=== PATIENT | female | born 1940 | race Caucasian/White ===

== ENCOUNTER → 2016-03-20 | Outpatient (CLI) | payer MEDICARE, OTHER ==
[~2016-03-20] MED LIST: ACIPHEX; ACIPHEX20 MG PO; ADVIL200 MG PO; ALBUTEROL0.83 MG/ML; ALVESCO80 MCG/Act IH; ASPIR-LOW81 MG PO; ATARAX 10MG10 MG/TAB PO; ATENOLOL25 MG PO; ATROVENT I0.2 MG/1 M IH; ATROVENTNS0.03% NS; BENTYL 20MG20 MG/TAB PO; CALCIUM-500 5001 CTB PO; CALCIUM1 CAP PO; CINNAMON500 MG; CINNAMON500 MG PO; COLD PO; DEMADEX 20MG20 M1 PO; DIOVAN 80MG80 MG PO; DOXYCYCLINE 10100 MG PO; EPA FISH OIL1000 MG PO; EVISTA60 MG PO; FISH OIL1 IU PO; FISH OIL500 MG PO; FLAGYL500 MG PO; FOSAMAX PO; GLUCOSAMINE & C1 CAP PO; HALCION 0.0.125 MG/T PO; HCTZ; INDERAL 10MG10 MG PO; K-TAB20; LASIX 20MG TABL20 MG PO; LASIX 40MG TABL40 MG PO; LORTAB 5/500 501 TAB PO; LOVAZA1 GM PO; MACROBID 1100 MG/CAP PO; MOTRIN 800800 MG/TAB PO; MULTIPLE VITAMI1 CAP PO; MVI; PAMELOR 10MG10 MG PO; PHENERGAN 25 TA25 MG PO; PRAVASTATIN40 MG PO; PRESERVISION; PRESSERVISION; PROBIOTIC ACID1 EAC3 PO; PROBIOTIC-SUNMARK; PROVENTIL0.09 MG/A1 IH; SINGULAIR; SPIRIVA INH IH; SPIRIVA18 MCG IH; THEO-24100 MG PO; THEOPHYLLINE PO; TYLENOL 500MG500 MG PO; ULTRAM50 MG PO; VITAMIN D32000 IU PO; VITAMIN D50000 I1 PO; VYTORIN; ZANTAC 7575 MG PO; ZEBETA 5MG5 MG PO; ZESTRIL2.5 MG PO; ZYRTEC; ZYRTEC 10MG10 MG PO; ZYRTEC-D 5 MG-11 TER PO; ZYRTEC10 MG PO; [UNRECOGNIZED DRUG - OTHER]; [UNRECOGNIZED DRUG - OTHER] PO; calcium; evista; glucosamine chondroi; vitamin d
== END ==
LOC: ZCOL.LAB 17:40
DX: J32.8 Other chronic sinusitis (principal)

== ENCOUNTER → 2016-12-05 | Outpatient (CLI) | payer MEDICARE, OTHER | LOC: MC.RAD 13:40 | DX: Z12.31 Encounter for screening mammogram for malignant neoplasm of breast (principal) ==

== ENCOUNTER 2017-07-20 09:29 | Emergency (ER) | payer MEDICARE, OTHER ==
[~2017-07-20] VITALS: Ht 154.9 cm; Wt 74.5 kg
[2017-07-20 09:36] VITALS: TEMP 97.4
[2017-07-20 10:15] LABS: BASO # 0.1 (0.0-0.2); BASO % 0.6 % (0.0-2.0); EOS # 0.3 (0.0-0.7); EOS % 3.1 % (0-4.0); GRAN # 5.8 (1.4-6.5); GRAN % 61.1 % (42.2-75.2); HEMATOCRIT 39.8 % (37.0-47.0); HEMOGLOBIN 13.2 g/dl (12.5-16.0); LYMPH # 2.1 (1.2-3.4); LYMPH % 22.3 % (20.0-51.0); MEAN CELL VOLUME 93 fl (80.0-100.0); MEAN CORPUSCULAR HEMOGLOBIN 31 pg (27.0-31.0); MEAN CORPUSCULAR HGB CONC 33 g/dl (33.0-37.0); MEAN PLATELET VOLUME 8.8 fl (7.4-10.4); MONO # 1.2 (0.1-0.6); MONO % 12.4 % (1.7-9.3); PLATELET COUNT 425 K/mm3 (130-400); REDCELL DISTRIBUTION WIDTH-CV 13.6 % (11.5-14.5)
[2017-07-20 10:28] LABS: ALANINE AMINOTRANSFERASE 32 U/L (9-52); ALBUMIN 3.7 gm/dL (3.5-5.0); ALKALINE PHOSPHATASE 92 U/L (50-136); ANION GAP 15 mmol/L (7-16); AST,SGOT 28 U/L (15-37); BILIRUBIN,TOTAL 0.5 mg/dL (0.0-1.0); BLOOD UREA NITROGEN 22 mg/dL (7-17); CARBON DIOXIDE 30 mmol/L (22-30); CHLORIDE 91 mmol/L (98-107); CREATININE, serum 1.03 mg/dL (0.52-1.25); GLUCOSE 112 mg/dL (74-106); LIPASE 96 U/L (23-300); SODIUM 136 mmol/L (137-145); TOTAL PROTEIN 7.3 gm/dL (6.4-8.2)
[2017-07-20] MEDS ORDERED: PRAVACHOL 40MG40 MG PO (10:35)
[2017-07-20] MEDS ORDERED: LASIX 20MG TABL20 MG PO (10:35)
[2017-07-20] MEDS ORDERED: EVISTA 60MG60 MG/TAB PO (10:36)
[2017-07-20] MEDS ORDERED: THEO-DUR 1100 MG/TAB PO (10:36)
[2017-07-20] MEDS ORDERED: ACIPHEX20 MG PO (10:36)
[2017-07-20] MEDS ORDERED: SINGULAIR 110 MG/TAB PO (10:37)
[2017-07-20] MEDS ORDERED: MULTI VITAMINS1 TAB PO (10:37)
[2017-07-20] MEDS ORDERED: K-DUR20 MEQ PO (10:37)
[2017-07-20] MEDS ORDERED: CALCIUM ANTACI750 M1 PO (10:38)
[2017-07-20] MEDS ORDERED: FISH OIL 500 M1 EAC1 PO (10:38)
[2017-07-20] MEDS ORDERED: SPIRIVA RE2.5 MCG/Ac IH (10:38)
[2017-07-20] MEDS ORDERED: ZANTAC 7575 MG PO (10:39)
[2017-07-20] MEDS ORDERED: ZYRTEC 10MG10 MG PO (10:39)
[2017-07-20] MEDS ORDERED: ATARAX 10MG10 MG/TAB PO (10:39)
[2017-07-20] MEDS ORDERED: ATROVENT NASAL15 ML NS (10:40)
[2017-07-20] MEDS ORDERED: PAMELOR 10MG10 MG PO (10:40)
[2017-07-20] MEDS ORDERED: FLOVENT 110MCG7.9 GM IH (10:40)
[2017-07-20] MEDS ORDERED: DIGESTIVE PROB1 EACH PO (10:41)
[2017-07-20] MEDS ORDERED: PROBIOTIC FORMU1 CAP PO (10:41)
[2017-07-20] MEDS ORDERED: INDERAL 10MG10 MG PO (10:41)
[2017-07-20] MEDS ORDERED: MELATONIN5 M1 SL (10:42)
[2017-07-20] MEDS ORDERED: FLONASEALLERGY NS (10:42)
[2017-07-20] MEDS ORDERED: NULEV0.125 M1 PO (10:43)
[2017-07-20 10:47] LABS: TROPONIN-I < 0.012 ng/mL (0.000-0.034)
[2017-07-20 11:18] LABS: COLLECTION METHOD CLEAN CATCH
[2017-07-20 11:23] LABS: PH 7 (5-8); SQUAMOUS EPITHELIAL 0-2 /hpf; URINE APPEARANCE Clear; URINE BACTERIA None Seen /hpf; URINE BILIRUBIN Negative (NEGATIVE); URINE BLOOD Negative (NEGATIVE); URINE COLOR Straw; URINE GLUCOSE Negative (NEGATIVE); URINE KETONE Negative (NEGATIVE); URINE LEUKOCYTE ESTERASE Negative (NEGATIVE); URINE NITRATE Negative (NEGATIVE); URINE PROTEIN(semi-quant) Negative (NEGATIVE); URINE RBC 0-2 /hpf; URINE UROBILINOGEN Negative (NEGATIVE); URINE WBC 0-2 /hpf
[2017-07-20 13:15] VITALS: BP 116/73; PULSE 108
== END 2017-07-20 13:17 | disposition other institution (70) ==
LOC: COL.ER 09:29
PROVIDERS: Emergency Medicine
DX: E87.6 Hypokalemia (principal); E86.0 Dehydration; R42 Dizziness and giddiness; I25.10 Atherosclerotic heart disease of native coronary artery without angina pectoris; J44.9 Chronic obstructive pulmonary disease, unspecified; Z90.49 Acquired absence of other specified parts of digestive tract; Z79.51 Long term (current) use of inhaled steroids
CPT/HCPCS: J7040

== ENCOUNTER 2017-11-28 15:00 | Outpatient (RCR) | payer MEDICARE, OTHER ==
[~2017-11-28 15:00] MED LIST changes: +ATROVENT NASAL15 ML NS; +CALCIUM ANTACI750 M1 PO; -CINNAMON500 MG; +D-2000 90 MG-201 TAB PO; +DIGESTIVE PROB1 EACH PO; +EVISTA 60MG60 MG/TAB PO; +FISH OIL 500 M1 EAC1 PO; +FLONASEALLERGY NS; +FLOVENT 110MCG7.9 GM IH; +K-DUR20 MEQ PO; +LEVAQUIN 5500 MG/TA1 PO; +MELATONIN5 M1 SL; +MULTI VITAMINS1 TAB PO; +NULEV0.125 M1 PO; +PRAVACHOL 40MG40 MG PO; +PROBIOTIC FORMU1 CAP PO; +SINGULAIR 110 MG/TAB PO; +SPIRIVA RE2.5 MCG/Ac IH; +THEO-DUR 1100 MG/TAB PO; -VITAMIN D32000 IU PO; +ZAROXOLYN 2.52.5 MG PO
== END 2017-11-28 15:44 | disposition home or self-care (01) ==
LOC: WSC 15:00
DX: R53.81 Other malaise (principal); R26.9 Unspecified abnormalities of gait and mobility; R22.43 Localized swelling, mass and lump, lower limb, bilateral; J18.1 Lobar pneumonia, unspecified organism
CPT/HCPCS: G8978-GP; G8979-GP; G8980-GP

== ENCOUNTER 2018-03-05 12:00 | Outpatient (RCR) | payer MEDICARE, OTHER | END 2018-03-06 | disposition home or self-care (01) | LOC: WSPT | DX: R22.43 Localized swelling, mass and lump, lower limb, bilateral (principal) | CPT/HCPCS: G8978-GP; G8979-GP ==

== ENCOUNTER 2018-05-15 11:00 | Outpatient (RCR) | payer MEDICARE, OTHER | END 2018-06-18 | disposition home or self-care (01) | LOC: WSPT | DX: R22.43 Localized swelling, mass and lump, lower limb, bilateral (principal) ==

== ENCOUNTER → 2018-07-01 | Outpatient (CLI) | payer MEDICARE, OTHER | LOC: MC.RAD 13:15 | DX: Z12.31 Encounter for screening mammogram for malignant neoplasm of breast (principal) ==

== ENCOUNTER 2018-09-17 13:43 | Outpatient (RCR) | payer MEDICARE, OTHER | END 2018-09-18 08:27 | disposition home or self-care (01) | LOC: WSPT 13:43 | DX: Z01.818 Encounter for other preprocedural examination (principal) ==

== ENCOUNTER 2018-11-13 14:30 | Outpatient (RCR) | payer MEDICARE, OTHER | END 2018-11-26 13:23 | disposition home or self-care (01) | LOC: WSPT 14:30 | DX: M17.11 Unilateral primary osteoarthritis, right knee (principal); Z96.651 Presence of right artificial knee joint ==

== ENCOUNTER → 2020-03-03 | Outpatient (CLI) | payer MEDICARE, OTHER | LOC: MC.RAD 02-02 13:45 | DX: Z12.31 Encounter for screening mammogram for malignant neoplasm of breast (principal); N63.20 Unspecified lump in the left breast, unspecified quadrant ==

== ENCOUNTER → 2020-03-10 | Outpatient (CLI) | payer MEDICARE, OTHER | LOC: MC.RAD 12:57 | DX: R92.8 Other abnormal and inconclusive findings on diagnostic imaging of breast (principal) ==

== ENCOUNTER 2020-04-20 13:45 | Outpatient (RCR) | payer MEDICARE, OTHER ==
[2020-05-20] MEDS ORDERED: MOTRIN 200200 MG/TAB PO (09:05)
[2020-05-20] MEDS ORDERED: PRAVACHOL 40MG40 MG PO (09:06)
[2020-05-20] MEDS ORDERED: FLONASE NASAL S16 GM NS (09:06)
[2020-05-20] MEDS ORDERED: ACIPHEX20 MG PO (09:07)
[2020-05-20] MEDS ORDERED: THEO-DUR 3300 MG/TAB PO (09:09)
[2020-05-20] MEDS ORDERED: EVISTA 60MG60 MG/TAB PO (09:09)
[2020-05-20] MEDS ORDERED: K-DUR20 MEQ PO (09:10)
[2020-05-20] MEDS ORDERED: MASON NATURAL2000 IU PO (09:11)
[2020-05-20] MEDS ORDERED: SINGULAIR 110 MG/TAB PO (09:11)
[2020-05-20] MEDS ORDERED: NATURE'S BLEND500 M1 PO (09:12)
[2020-05-20] MEDS ORDERED: CALCIUM CARBON650 M2 PO (09:41)
[2020-05-20] MEDS ORDERED: RT SPIRIVA18 MCG IH (09:42)
[2020-05-20] MEDS ORDERED: FISH OIL 500 M1 EAC1 PO (09:43)
[2020-05-20] MEDS ORDERED: ZYRTEC-D 5 MG-11 TER PO (09:44)
[2020-05-20] MEDS ORDERED: TYLENOL 500MG500 MG (09:45)
[2020-05-20] MEDS ORDERED: ZYRTEC 10MG10 MG PO (09:46)
[2020-05-20] MEDS ORDERED: FLOVENT 110MCG7.9 GM IH (09:47)
[2020-05-20] MEDS ORDERED: ATARAX 10MG10 MG/TAB PO (09:47)
[2020-05-20] MEDS ORDERED: ATROVENTNS0.03% NS (09:49)
[2020-05-20] MEDS ORDERED: NEB MC (09:50)
[2020-05-20] MEDS ORDERED: INDERAL 10MG10 MG PO (09:51)
[2020-05-20] MEDS ORDERED: LEVSIN0.125 M1 PO (09:52)
[2020-05-20] MEDS ORDERED: PROBIOTIC FORMU1 CAP PO (09:52)
[2020-05-20] MEDS ORDERED: PAMELOR 10MG10 MG PO (09:53)
[2020-05-20] MEDS ORDERED: [UNRECOGNIZED DRUG - OTHER] (09:54)
[2020-05-20] MEDS ORDERED: RINSE (09:54)
[2020-05-20] MEDS ORDERED: LASIX 20MG TABL20 MG PO (09:55)
[2020-05-20] MEDS ORDERED: PEPCID 20MG TAB20 MG PO (09:55)
[2020-05-20] MEDS ORDERED: ULTRAM 50MG TAB50 MG PO (11:47)
== END 2020-05-23 | disposition home or self-care (01) ==
LOC: WSPT
DX: I89.0 Lymphedema, not elsewhere classified (principal)

== ENCOUNTER → 2020-04-26 | Outpatient (CLI) | payer MEDICARE, OTHER ==
[~2020-04-26] MED LIST changes: +CALCIUM CARBON650 M2 PO; +FLONASE NASAL S16 GM NS; +LEVSIN0.125 M1 PO; +MASON NATURAL2000 IU PO; +MOTRIN 200200 MG/TAB PO; +NATURE'S BLEND500 M1 PO; +NEB MC; +PEPCID 20MG TAB20 MG PO; +RINSE; +RT SPIRIVA18 MCG IH; +THEO-DUR 3300 MG/TAB PO; +TYLENOL 500MG500 MG; +ULTRAM 50MG TAB50 MG PO; +[UNRECOGNIZED DRUG - OTHER]
== END ==
LOC: MC.RAD
DX: N63.42 Unspecified lump in left breast, subareolar (principal); N60.01 Solitary cyst of right breast; Z98.890 Other specified postprocedural states; Z98.82 Breast implant status

== ENCOUNTER 2020-05-20 06:54 | Day surgery (SDC) | payer MEDICARE, OTHER ==
[~2020-05-20] VITALS: Ht 154.9 cm; Wt 74.6 kg
[~2020-05-20 06:54] MED LIST changes: -CALCIUM CARBON650 M2 PO; -FLONASE NASAL S16 GM NS; -LEVSIN0.125 M1 PO; -MASON NATURAL2000 IU PO; -MOTRIN 200200 MG/TAB PO; -NATURE'S BLEND500 M1 PO; -NEB MC; -PEPCID 20MG TAB20 MG PO; -RINSE; -RT SPIRIVA18 MCG IH; -THEO-DUR 3300 MG/TAB PO; -TYLENOL 500MG500 MG; -ULTRAM 50MG TAB50 MG PO; -[UNRECOGNIZED DRUG - OTHER]
[2020-05-20 08:44] VITALS: BP 153/73; PULSE 80; TEMP 98.1
[2020-05-20] MEDS ORDERED: MOTRIN 200200 MG/TAB PO (09:05)
[2020-05-20] MEDS ORDERED: PRAVACHOL 40MG40 MG PO (09:06)
[2020-05-20] MEDS ORDERED: FLONASE NASAL S16 GM NS (09:06)
[2020-05-20] MEDS ORDERED: ACIPHEX20 MG PO (09:07)
[2020-05-20] MEDS ORDERED: THEO-DUR 3300 MG/TAB PO (09:09)
[2020-05-20] MEDS ORDERED: EVISTA 60MG60 MG/TAB PO (09:09)
[2020-05-20] MEDS ORDERED: K-DUR20 MEQ PO (09:10)
[2020-05-20] MEDS ORDERED: SINGULAIR 110 MG/TAB PO (09:11)
[2020-05-20] MEDS ORDERED: MASON NATURAL2000 IU PO (09:11)
[2020-05-20] MEDS ORDERED: NATURE'S BLEND500 M1 PO (09:12)
[2020-05-20] MEDS ORDERED: CALCIUM CARBON650 M2 PO (09:41)
[2020-05-20] MEDS ORDERED: RT SPIRIVA18 MCG IH (09:42)
[2020-05-20] MEDS ORDERED: FISH OIL 500 M1 EAC1 PO (09:43)
[2020-05-20] MEDS ORDERED: ZYRTEC-D 5 MG-11 TER PO (09:44)
[2020-05-20] MEDS ORDERED: TYLENOL 500MG500 MG (09:45)
[2020-05-20] MEDS ORDERED: ZYRTEC 10MG10 MG PO (09:46)
[2020-05-20] MEDS ORDERED: ATARAX 10MG10 MG/TAB PO (09:47)
[2020-05-20] MEDS ORDERED: FLOVENT 110MCG7.9 GM IH (09:47)
[2020-05-20] MEDS ORDERED: ATROVENTNS0.03% NS (09:49)
[2020-05-20] MEDS ORDERED: NEB MC (09:50)
[2020-05-20] MEDS ORDERED: INDERAL 10MG10 MG PO (09:51)
[2020-05-20] MEDS ORDERED: LEVSIN0.125 M1 PO (09:52)
[2020-05-20] MEDS ORDERED: PROBIOTIC FORMU1 CAP PO (09:52)
[2020-05-20] MEDS ORDERED: PAMELOR 10MG10 MG PO (09:53)
[2020-05-20] MEDS ORDERED: RINSE (09:54)
[2020-05-20] MEDS ORDERED: [UNRECOGNIZED DRUG - OTHER] (09:54)
[2020-05-20] MEDS ORDERED: PEPCID 20MG TAB20 MG PO (09:55)
[2020-05-20] MEDS ORDERED: LASIX 20MG TABL20 MG PO (09:55)
[2020-05-20] MEDS ORDERED: ULTRAM 50MG TAB50 MG PO (11:47)
[2020-05-20 11:55] VITALS: BP 139/59; PULSE 85
--- NOTE | 2020-05-20 11:55 | NUR ---
Patient returns to room 7 per cart from surgery accompanied by Amber STEVENS and Solomon Lam CRNA. Patient is awake and alert. Temp 97.8 and room air sats 96%. Dressing clean and dry on the left breast. Daughter in room. IV fluids infusing. Denies pain or nausea. Given sips of water to drink.
[2020-05-20 12:10] VITALS: BP 152/60; PULSE 81
--- NOTE | 2020-05-20 12:10 | NUR ---
Resting and sipping on water. Continues to deny pain or nausea.
[2020-05-20 12:25] VITALS: BP 156/64; PULSE 81
--- NOTE | 2020-05-20 12:25 | NUR ---
Continues to sip on water. Offered snack and refuses. States that her daughter is going to get her something to eat on the way home.
--- NOTE | 2020-05-20 12:35 | NUR ---
IV discontinued and site is free of redness or swelling. Patient dresses self.
--- NOTE | 2020-05-20 12:49 | NUR ---
Dismissal instructions given and signed. Patient and daugter both verbalize understand these. Script was sent to pharmacy by physician.
--- NOTE | 2020-05-20 12:53 | NUR ---
Patient dismissed to home driven by daughter and taken to the front door per wheelchair with instructions in hand.
== END 2020-05-20 12:53 | disposition home or self-care (01) ==
LOC: SDCO 06:54
DX: N60.22 Fibroadenosis of left breast (principal); J44.9 Chronic obstructive pulmonary disease, unspecified; K21.9 Gastro-esophageal reflux disease without esophagitis; M81.0 Age-related osteoporosis without current pathological fracture; K58.9 Irritable bowel syndrome, unspecified; E78.5 Hyperlipidemia, unspecified; I10 Essential (primary) hypertension; I25.10 Atherosclerotic heart disease of native coronary artery without angina pectoris; I25.2 Old myocardial infarction; M19.90 Unspecified osteoarthritis, unspecified site; F32.9 Major depressive disorder, single episode, unspecified; F41.9 Anxiety disorder, unspecified; Z79.899 Other long term (current) drug therapy; Z85.828 Personal history of other malignant neoplasm of skin; Z80.0 Family history of malignant neoplasm of digestive organs
CPT/HCPCS: A4648; J0690; J1100; J1885; J2405; J2704; J3010; J7120

== ENCOUNTER 2021-05-06 15:24 | Emergency (ER) | payer MEDICARE, OTHER ==
[~2021-05-06] VITALS: Ht 154.9 cm; Wt 73.2 kg
[~2021-05-06 15:24] MED LIST changes: +CALCIUM CARBON650 M2 PO; +FLONASE NASAL S16 GM NS; +LEVSIN0.125 M1 PO; +MASON NATURAL2000 IU PO; +MOTRIN 200200 MG/TAB PO; +NATURE'S BLEND500 M1 PO; +NEB MC; +PEPCID 20MG TAB20 MG PO; +RINSE; +RT SPIRIVA18 MCG IH; +THEO-DUR 3300 MG/TAB PO; +TYLENOL 500MG500 MG; +ULTRAM 50MG TAB50 MG PO; +[UNRECOGNIZED DRUG - OTHER]
[2021-05-06 15:33] VITALS: BP 175/78; TEMP 97.2
[2021-05-06] MEDS ORDERED: ROBAXIN 50500 MG/TAB PO (16:18)
[2021-05-06 16:35] VITALS: PULSE 92
== END 2021-05-06 16:36 | disposition home or self-care (01) ==
LOC: COL.ER 15:24
DX: S09.90XA Unspecified injury of head, initial encounter (principal); W01.198A Fall on same level from slipping, tripping and stumbling with subsequent striking against other object, initial encounter; Y93.01 Activity, walking, marching and hiking; Y92.512 Supermarket, store or market as the place of occurrence of the external cause

== ENCOUNTER → 2021-08-31 | Outpatient (CLI) | payer MEDICARE, OTHER ==
[~2021-08-31] MED LIST changes: +ROBAXIN 50500 MG/TAB PO
== END ==
LOC: MC.RAD 08-28 10:00
DX: R92.8 Other abnormal and inconclusive findings on diagnostic imaging of breast (principal); N63.20 Unspecified lump in the left breast, unspecified quadrant

== ENCOUNTER → 2022-05-02 | Outpatient (CLI) | payer MEDICARE, OTHER ==
[~2022-05-02] MED LIST changes: +CALCIUM 600600 MG PO; -CALCIUM CARBON650 M2 PO; +FLONASEALLERGY; +KLOR-CON20 MEQ PO
== END ==
LOC: MC.RAD 13:55
DX: N63.20 Unspecified lump in the left breast, unspecified quadrant (principal); Z98.890 Other specified postprocedural states

== ENCOUNTER 2023-06-11 13:26 | Outpatient (RCR) | payer MEDICARE, OTHER ==
[~2023-06-11 13:26] MED LIST changes: +B-12 500 MCG PO; -FLONASEALLERGY; +FLONASEALLERGY NAS; +FLOVENT DI50 MCG/Act IH; +FOSAMAX 70MG TA70 MG PO; +K-TAB20 PO; +OMEGA-3 1000 MG1 CAP PO; +PEPCID AC 10MG10 MG PO; +PROBIOTIC BLEN1 EACH PO; +XANAX 0.5MG0.5 MG PO; +ZOFRAN ODT4 MG PO
== END 2023-06-18 | disposition home or self-care (01) ==
LOC: WSST
DX: R13.12 Dysphagia, oropharyngeal phase (principal)

== ENCOUNTER 2023-06-24 12:25 | Outpatient (RCR) | payer MEDICARE, OTHER ==
[2023-08-19] MEDS ORDERED: ASPIRIN E.C. 8181 MG PO (12:59)
== END 2023-07-19 | disposition home or self-care (01) ==
LOC: WSST
DX: R13.12 Dysphagia, oropharyngeal phase (principal)

== ENCOUNTER 2023-08-25 17:28 | Inpatient (IN) | payer MEDICARE, OTHER ==
[~2023-08-25] VITALS: Ht 149.9 cm; Wt 69.2 kg
[2023-08-25] VITALS (7 sets, daily range): BP systolic 88–124; BP diastolic 38–49; PULSE 91–96; TEMP 97.1–98.1
[~2023-08-25 17:28] MED LIST changes: +ASPIRIN E.C. 8181 MG PO; +K-TAB10 PO; -K-TAB20 PO
[2023-08-25] MEDS ORDERED: LR 1,000 ML IV ONE (17:45)
[2023-08-25 18:35] LABS: MEAN CELL VOLUME 55 fl (80.0-100.0); MEAN CORPUSCULAR HGB CONC 26 g/dl (33.0-37.0); MEAN PLATELET VOLUME 8.9 fl (7.4-10.4); PLATELET COUNT 813 K/mm3 (130-400); REDCELL DISTRIBUTION WIDTH-CV 23.6 % (11.5-14.5)
[2023-08-25 18:43] LABS: ALBUMIN 2.3 g/dL (3.4-4.8); BILIRUBIN,TOTAL 0.4 mg/dL (0.2-1.2); C-REACTIVE PROTEIN 8.61 mg/dL (0.00-0.50); CALCIUM 8.5 mg/dL (8.4-10.2); CREATININE, serum 2.97 mg/dL (0.57-1.11); HEMATOCRIT 21.4 % (37.0-47.0); MEAN CORPUSCULAR HEMOGLOBIN 14 pg (27-31); POTASSIUM 3.4 mEq/L (3.5-4.5); TOTAL PROTEIN 5.6 g/dl (6.2-8.1)
[2023-08-25 18:44] LABS: HEMOGLOBIN 5.6 g/dl (12.5-16.0)
[2023-08-25 19:01] LABS: EOSINOPHIL 1 % (0-4); LYMPHOCYTE 11 % (20.0-51.0); NEUTROPHILS 76 % (42.0-75.2); PLATELET ESTIMATE INCREASED (NORMAL)
[2023-08-25 19:02] LABS: ANISOCYTOSIS 2+; BURR CELLS 1+; MICROCYTOSIS 2+; OVALOCYTES 2+; TEAR DROP CELLS 1+
[2023-08-25] MEDS ORDERED: LR 1,000 ML IV SCH (19:45)
[2023-08-25] MEDS ORDERED: INDERAL 10MG10 MG PO (20:20)
[2023-08-25] MEDS ORDERED: ACIPHEX20 MG PO (20:29)
[2023-08-25] MEDS ORDERED: ZOLOFT 25MG25 MG PO (20:29)
[2023-08-25] MEDS ORDERED: CRESTOR20 MG PO (20:30)
[2023-08-25] MEDS ORDERED: BUMEX2 MG PO (20:31)
[2023-08-25] MEDS ORDERED: LEVSIN0.125 M1 PO (20:34)
[2023-08-25] MEDS ORDERED: Sertraline 25 MG TAB PO SCH (21:00)
[2023-08-25] MEDS ORDERED: Nortriptyline 10 MG CAP PO SCH (21:00)
[2023-08-25] MEDS ORDERED: Acetaminophen 325 MG TAB PO PRN (21:30)
[2023-08-25] MEDS ORDERED: Pantoprazole 40 MG in NS 10 ML IV SCH (21:30)
[2023-08-25] MEDS ORDERED: Potassium Chloride 100 ML IV SCH (21:45)
[2023-08-25] MEDS ORDERED: *Potassium Replacement Protocol MC SCH (21:45)
[2023-08-25 21:58] LABS: MAGNESIUM 2.9 mg/dL (1.6-2.6); PHOSPHOROUS 4.5 mg/dL (2.3-4.7)
[2023-08-25 22:02] LABS: COLLECTION METHOD CLEAN CATCH
--- NOTE | 2023-08-25 22:02 | NUR ---
Report recieved from HILDA Babb from ED. All questions answered.
[2023-08-25 22:21] LABS: PH 5.5 (5.0-8.5); URINE APPEARANCE CLOUDY (CLEAR/HAZY); URINE BLOOD TRACE (NEGATIVE); URINE COLOR YELLOW (YELLOW); URINE GLUCOSE NEGATIVE (NEGATIVE); URINE KETONE NEGATIVE (NEGATIVE); URINE NITRATE NEGATIVE (NEGATIVE); URINE PROTEIN(semi-quant) 2+ (NEGATIVE); URINE UROBILINOGEN 0.2 E.U/dL (0.2-1.0)
[2023-08-25 22:32] LABS: MUCOUS PRESENT (NOT PRESENT); SQUAMOUS EPITHELIAL NONE SEEN /hpf (0-10); URINE BACTERIA RARE /hpf (NONE SEEN); URINE RBC 0-2 /hpf (0-2); URINE WBC None Seen /hpf (0-2)
--- NOTE | 2023-08-25 22:45 | NUR ---
Patient arrived to room 328 at this time with daughter at bedside. Fall precautions in place, yellow gown, and yellow socks on. SCDs applied. Assessment and med rec complete. IV in left AC and right forearm infusing without complications. Blood transfusing to right forearm without complications. Oriented patient to room, bed, and call light. Denies any pain at this time. Needs met. Call light and persoanl items in reach. Bed in low position and bed alarm on.
--- NOTE | 2023-08-25 23:54 | NUR ---
Hospitalist Macey notified of critical triponin of 0.044 with previous triponin of 0.054.
[2023-08-26] VITALS (16 sets, daily range): BP systolic 92–170; BP diastolic 33–82; PULSE 73–99; TEMP 97.9–98.3
[2023-08-26 01:19] LABS: HEMATOCRIT 24.4 % (37.0-47.0); HEMOGLOBIN 6.9 g/dl (12.5-16.0)
--- NOTE | 2023-08-26 01:20 | NUR ---
Call from lab with critical Hgb of 6.9. Hospitalist Macey called and notified at this time. Recieved orders to transfuse another unit of PRBC.
--- NOTE | 2023-08-26 02:00 | NUR ---
Hospitalist Macey notified of critical triponin of 0.048 with previous level of 0.044.
[2023-08-26 06:00] LABS: MEAN CORPUSCULAR HGB CONC 30 g/dl (33.0-37.0); MEAN PLATELET VOLUME 8.5 fl (7.4-10.4); RED BLOOD COUNT 4.12 M/mm3 (4.10-5.30); REDCELL DISTRIBUTION WIDTH-CV 33.1 % (11.5-14.5)
[2023-08-26 06:05] LABS: HEMATOCRIT 26.2 % (37.0-47.0); HEMOGLOBIN 7.9 g/dl (12.5-16.0); MEAN CELL VOLUME 64 fl (80.0-100.0); MEAN CORPUSCULAR HEMOGLOBIN 19 pg (27-31); PLATELET COUNT 422 K/mm3 (130-400)
--- NOTE | 2023-08-26 06:25 | NUR ---
Patient recieved a total of 2 units of PRBC due to Hgb of 5.6. Patinets Hgb this am is 7.9. Patient gets confused over night and pulled out right forearm IV this morning stating "Get these things off me." Reoriented patient and wraped remianing IV in left forearm with TABATHA wrap. Call light and personal items in reach. Bed in low position and bed alarm on.
[2023-08-26 06:26] LABS: CALCIUM 7.6 mg/dL (8.4-10.2); CREATININE, serum 2.5 mg/dL (0.57-1.11); POTASSIUM 3.5 mEq/L (3.5-4.5)
--- NOTE | 2023-08-26 06:30 | NUR ---
Consult called to Dr. Perry at this time and notified of events over night. Patient came in with Hbg of 5.6, transfused with 1 unit and Hbg came up to 6.9. On recheck Hgb was 7.9. Patient had an EGD and swallow study recently. Swallow study did not show any sign of aspiration. 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 Has fallen 4 times in the past [address] Perry stated "Can you ask her when her last colonoscopy was and who did her EGD and let me know. You can advance her to clear liquid diet if other providers are okay with it. Thank you."
[2023-08-26 07:00] LABS: BAND 4 % (0-10); LYMPHOCYTE 13 % (20.0-51.0); NEUTROPHILS 76 % (42.0-75.2); NUCLEATED RED BLOOD CELL 2 (0-6)
[2023-08-26 07:02] LABS: ANISOCYTOSIS 3+; PLATELET ESTIMATE INCREASED (NORMAL)
[2023-08-26 07:03] LABS: MICROCYTOSIS 3+
[2023-08-26 07:04] LABS: OVALOCYTES 2+; TEAR DROP CELLS 1+
[2023-08-26 07:05] LABS: BURR CELLS 1+
[2023-08-26] MEDS ORDERED: Fluticasone Nasal 50 MCG/Spray 16 GM BOTTLE NS SCH (09:00)
[2023-08-26] MEDS ORDERED: Tiotropium 18 MCG **** subs to Tiotropium 5 mcg IH SCH (09:41)
[2023-08-26] MEDS ORDERED: THEOPHYLLINE 300 MG PO SCH (09:42)
[2023-08-26] MEDS ORDERED: [UNRECOGNIZED DRUG - OTHER] PO SCH (09:42)
[2023-08-26] MEDS ORDERED: THEOPHYLLINE 600 MG PO SCH (09:46)
[2023-08-26] MEDS ORDERED: Tiotropium 2.5 MCG Respimat MDI IH SCH (09:47)
--- NOTE | 2023-08-26 10:56 | NUR ---
SW met with patient and daughter Liseth to complete initial assessment for discharge planning. Patient/dtr report that patient lives in [place] alone, with daughter Peggy ([phone]) living close by and assisting patient daily. Patient lists her son Maximino ([phone]) as her DPOA with two daughter as alternates. Patient sees Dr. Gusman as her PCP and uses [facility] for maintenance medications and [facility] pharmacy for immediate needs. Patient has walker, cane, wheelchair, shower chair and grab bars for use at home. Discussed probable need for SNF at discharge given patient's increased weakness and multiple falls at home. Daughter agreeable. Medicare.gov list provided and daughter susan Cummings for referral. Clinicals sent via secure email. Discharge plan: SNF
[2023-08-26] MEDS ORDERED: VALTREX1 GM PO (11:49)
[2023-08-26] MEDS ORDERED: DIFLUCAN200 MG PO (11:50)
[2023-08-26] MEDS ORDERED: MAGIC MOUTH PO (11:50)
[2023-08-26] MEDS ORDERED: Cholecalciferol (Vit D3) 1000 Units TAB PO SCH (12:00)
[2023-08-26] MEDS ORDERED: Montelukast 10 MG TAB PO SCH (12:00)
[2023-08-26] MEDS ORDERED: Potassium Chloride 100 ML IV SCH (12:15)
[2023-08-26] MEDS ORDERED: *Potassium Replacement Protocol MC SCH (12:15)
[2023-08-26] MEDS ORDERED: Ondansetron 4 MG/2 ML VIAL IV PRN (15:30)
[2023-08-26] MEDS ORDERED: Bisacodyl 5 MG TAB PO SCH (16:00)
[2023-08-26] MEDS ORDERED: Polyethylene Glycol 3350 119 GM BOTTLE PO SCH (18:00)
[2023-08-26] MEDS ORDERED: Atorvastatin 40 MG TAB PO SCH (21:00)
[2023-08-26] MEDS ORDERED: Rosuvastatin 20 MG **** subs to Atorvastatin 40 MG PO SCH (21:00)
--- NOTE | 2023-08-26 22:00 | NUR ---
Patient resting in bed. Denies any pain at this time. Assissted patient to bedside commode and back to bed. Assessment complete. IV in left forearm infusing without complications. Call light and personal items in reach. Bed in low position and bed alarm on.
[2023-08-27] VITALS (17 sets, daily range): BP systolic 124–166; BP diastolic 53–80; PULSE 88–114; TEMP 97.6–98
[2023-08-27 06:53] LABS: MEAN CELL VOLUME 63 fl (80.0-100.0); MEAN CORPUSCULAR HGB CONC 30 g/dl (33.0-37.0); RED BLOOD COUNT 4.32 M/mm3 (4.10-5.30)
[2023-08-27 06:55] LABS: HEMATOCRIT 27.3 % (37.0-47.0); HEMOGLOBIN 8.3 g/dl (12.5-16.0); MEAN CORPUSCULAR HEMOGLOBIN 19 pg (27-31); PLATELET COUNT 560 K/mm3 (130-400)
[2023-08-27 06:59] LABS: RETIC # 0.03 M/mm3 (0.02-0.16); RETIC % 0.6 % (0.5-3.52)
[2023-08-27] MEDS ORDERED: Polyethylene Glycol 3350 119 GM BOTTLE PO SCH (07:00)
--- NOTE | 2023-08-27 07:30 | NUR ---
patient asleep, resting in bed, rn encouraging patient to drink her bowel prep. patient reluctant, staff will keep encouraging. call ligh within reach.fall precautions inplace. ivf infusing, scott patent and draining.
[2023-08-27 07:31] LABS: CALCIUM 8.3 mg/dL (8.4-10.2); CREATININE, serum 1.62 mg/dL (0.57-1.11); MAGNESIUM 1.9 mg/dL (1.6-2.6); POTASSIUM 3.1 mEq/L (3.5-4.5)
[2023-08-27 07:49] LABS: BAND 3 % (0-10); LYMPHOCYTE 13 % (20.0-51.0); NEUTROPHILS 75 % (42.0-75.2)
[2023-08-27 07:50] LABS: ANISOCYTOSIS 3+; HYPOCHROMIA 2+
[2023-08-27 07:51] LABS: PLATELET ESTIMATE INCREASED (NORMAL)
[2023-08-27] MEDS ORDERED: Omega-3 Fatty Acid Esters (OTC) 1,000 MG CAP PO SCH (09:00)
[2023-08-27] MEDS ORDERED: Cyanocobalamin (Vit B-12) 1,000 MCG TAB PO SCH (09:00)
--- NOTE | 2023-08-27 09:00 | NUR ---
patient completetd 3/4 of her am dose of bowel prep. patient now npo for upcoming procedure.
[2023-08-27] MEDS ORDERED: LR 1,000 ML IV SCH (10:00)
--- NOTE | 2023-08-27 10:30 | NUR ---
patient had large watery green bowel movement. patient two assist to commode and back to bed. niyah care provided, new gown and linen placed. paients ble wrapped with claudia wrap bandage. patient denies any needs or complaints at this time. call light wtihin reach.
[2023-08-27] MEDS ORDERED: *Potassium Replacement Protocol MC SCH (10:45)
[2023-08-27] MEDS ORDERED: Potassium Chloride 100 ML IV SCH (10:45)
[2023-08-27] MEDS ORDERED: Lidocaine PF 2% (20 MG/ML) 5 ML VIAL ONE (13:17)
--- NOTE | 2023-08-27 14:18 | NUR ---
Director Meetings faxed updates to [facility] at [facility].
--- NOTE | 2023-08-27 15:11 | NUR ---
patient arrived sleepy, but easily arousable from procedure. patient checked, no chnage needed. cath care provided. christ awake and alert, speakign with her daughter who is at bedside , call light within reach, fall precautions in place, post op vitals initiated (vs stable at this time.) patients ordered iv fluid and k protocol resumed.
--- NOTE | 2023-08-27 15:43 | NUR ---
SW called [facility] to follow up on referral. Notified that they do not have beds available at this time but can continue to follow pt. SW met with patient and daughter at bedside. Discussed Medicare.gov SNF list provided. Daughter called her and conversation of local facilities held to include SNF and [facility]. Daughter wanting to talk with her brother and sister to decide which facility to refer to. Patient stated "I don't care and don't think I can make a decision right now." Family to notify this RAMONA early tomorrow morning with second choice. Discharge plan: SNF
[2023-08-27] MEDS ORDERED: Propranolol 10 MG TAB PO SCH ×2 (17:00→21:00)
--- NOTE | 2023-08-27 17:00 | NUR ---
PATIENT ASLEEP, RESTING IN BED. EASILY AROUSES TO NAME. CALL LIGHT WITHIN REACH, FALL PRECAUTIONS INPLACE. ROBERSON CATHETER INTACT AND PATENT.
--- NOTE | 2023-08-27 19:05 | NUR ---
Patient called at this time stating she felt short of breath. When entering the room patient does not apper to be in respiratory distress. Boosted patient up in bed and encouraged her to cough a little bit. Lungs sound clear. O2 reading at 94% on room air. After interventions patient states she feels better.
--- NOTE | 2023-08-27 21:00 | NUR ---
Patient resting in bed. Denies any pain at this time. Needs met. Face wiped with warm rag and moisturizer applied. Assessment complete. IV in left forearm infusing without complications. Call light and personal items in reach. Bed in low positon and bed alarm on.
[2023-08-28] VITALS (12 sets, daily range): BP systolic 128–144; BP diastolic 64–82; PULSE 89–100; TEMP 97.5–97.9
[2023-08-28 06:54] LABS: BASO # 0.1 K/mm3 (0.0-0.2); BASO % 0.6 % (0.0-2.0); EOS # 0.4 K/mm3 (0.0-0.7); EOS % 4.7 % (0.0-4.0); GRAN # 6.1 K/mm3 (1.4-6.5); GRAN % 64.8 % (42.2-75.2); LYMPH # 1.4 K/mm3 (1.2-3.4); LYMPH % 15.3 % (20.0-51.0); MEAN CELL VOLUME 63 fl (80.0-100.0); MEAN CORPUSCULAR HGB CONC 29 g/dl (33.0-37.0); MEAN PLATELET VOLUME 8.9 fl (7.4-10.4); MONO # 1.3 K/mm3 (0.1-0.6); MONO % 14.2 % (1.7-9.3); PLATELET COUNT 596 K/mm3 (130-400); RED BLOOD COUNT 4.56 M/mm3 (4.10-5.30)
[2023-08-28 06:58] LABS: HEMATOCRIT 28.8 % (37.0-47.0); HEMOGLOBIN 8.3 g/dl (12.5-16.0); MEAN CORPUSCULAR HEMOGLOBIN 18 pg (27-31)
[2023-08-28 07:21] LABS: CALCIUM 7.8 mg/dL (8.4-10.2); CREATININE, serum 1.11 mg/dL (0.57-1.11); POTASSIUM 3.9 mEq/L (3.5-4.5)
[2023-08-28] MEDS ORDERED: Potassium Bicarbonate/Citrate 20 MEQ Effervescent TAB PO ONE (08:00)
[2023-08-28] MEDS ORDERED: Ferrous Sulfate 325 MG TAB PO SCH (12:00)
--- NOTE | 2023-08-28 12:38 | NUR ---
SW received message from patient's family Dimitri ([phone]) stating they want a referral sent to [facility]. Referral faxed. RAMONA attended clinical rounds and patient is medically stable for discharge. RAMONA called Silverio at [facility] to inquire about acceptance. SW met with patient to discuss Medicare IM form. Patient agreeable to discharge either today or tomorrow and signed form. Original on chart, copy to patient. Discharge plan: SB/SNF
--- NOTE | 2023-08-28 15:30 | NUR ---
SW received call from Reema at [facility] accepting patient for admission. She states they can admit pt tomorrow and set transport for 1000. Attending notified. Family notified. Discharge plan: SNF
[2023-08-28] MEDS ORDERED: TYLENOL 325MG325 MG PO (15:35)
[2023-08-28] MEDS ORDERED: FERROUS SU325 MG/TAB PO (15:36)
--- NOTE | 2023-08-28 20:00 | NUR ---
UPON SHIFT ASSESSMENT, PATIENT WAS NAPPING IN BED. SHE WAS EASY TO AWAKEN AND AXO X3. CURERENT Hgb 8.3. PEDAL PULSES AUDIBLE WITH DOPPLER. BLE EXHIBIT PROFOUND 3+ EDEMA R/T Hx OF LYMPHEDEMA. COLTON EXTREMITIES EXHIBIT 2+ EDEMA. ROBERSON DRAINING YELLOW CLEAR URINE VS ARE WNL AND TELE IS NS. CALL LIGHT WITHIN REACH. PATIENT DENIES PAIN OR NEEDS AT THIS TIME.
--- NOTE | 2023-08-28 20:15 | NUR ---
ATTEMPTED TO PLACE SCDs. PATIENT REFUSED STATED, "THEY HURT AND ARE TOO TIGHT WITH MY SWELLING"
[2023-08-29 00:39] VITALS: BP 128/71; PULSE 96; TEMP 97.6
[2023-08-29 01:00] VITALS: BP_SYST 128
[2023-08-29 04:22] VITALS: BP 118/68; PULSE 101; TEMP 97.7
[2023-08-29 05:00] VITALS: BP_SYST 118
[2023-08-29 06:23] LABS: BASO # 0.1 K/mm3 (0.0-0.2); BASO % 0.6 % (0.0-2.0); EOS # 0.4 K/mm3 (0.0-0.7); EOS % 4.2 % (0.0-4.0); GRAN # 5.2 K/mm3 (1.4-6.5); GRAN % 63.3 % (42.2-75.2); LYMPH # 1.3 K/mm3 (1.2-3.4); LYMPH % 16.1 % (20.0-51.0); MEAN CELL VOLUME 62 fl (80.0-100.0); MEAN CORPUSCULAR HGB CONC 30 g/dl (33.0-37.0); MONO # 1.2 K/mm3 (0.1-0.6); PLATELET COUNT 600 K/mm3 (130-400); RED BLOOD COUNT 4.25 M/mm3 (4.10-5.30); REDCELL DISTRIBUTION WIDTH-CV 33.5 % (11.5-14.5)
[2023-08-29 06:29] LABS: CALCIUM 8.4 mg/dL (8.4-10.2); CREATININE, serum 0.84 mg/dL (0.57-1.11); POTASSIUM 3.6 mEq/L (3.5-4.5)
[2023-08-29 07:27] LABS: HEMATOCRIT 26.4 % (37.0-47.0); MEAN CORPUSCULAR HEMOGLOBIN 19 pg (27-31)
[2023-08-29 07:44] VITALS: BP 131/70; PULSE 103; TEMP 98.1
[2023-08-29] MEDS ORDERED: Potassium Bicarbonate/Citrate 20 MEQ Effervescent TAB PO SCH (08:00)
[2023-08-29 09:00] VITALS: BP_SYST 131
--- NOTE | 2023-08-29 15:36 | NUR ---
Mica Plate Layer Hand confirmed with Abiola at [facility] that they still plan to transport at 1000. RAMONA faxed discharge orders and notified patient and daughter, Fabienne of transport time. Discharge Plan: [facility]
== END 2023-08-29 10:20 | DRG 811 ==
LOC: COL.ER 17:28 → SURG 21:40 → MEDICAL 21:40 → COL.ER 21:40 → SURG 08-26 09:23 → MEDICAL 08-26 09:23
PROVIDERS: Family Medicine; Internal Medicine; Nurse Practitioner Family; Physician Assistant; ADMIT Internal Medicine
DX: D50.9 Iron deficiency anemia, unspecified (principal); I21.4 Non-ST elevation (NSTEMI) myocardial infarction; I50.42 Chronic combined systolic (congestive) and diastolic (congestive) heart failure; N17.9 Acute kidney failure, unspecified; E87.20 Acidosis, unspecified; I25.10 Atherosclerotic heart disease of native coronary artery without angina pectoris; I11.0 Hypertensive heart disease with heart failure; I27.20 Pulmonary hypertension, unspecified; E87.6 Hypokalemia; E88.09 Other disorders of plasma-protein metabolism, not elsewhere classified; D75.839 Thrombocytosis, unspecified; E78.5 Hyperlipidemia, unspecified; J45.909 Unspecified asthma, uncomplicated; K21.9 Gastro-esophageal reflux disease without esophagitis; F41.9 Anxiety disorder, unspecified; F32.A Depression, unspecified
CPT/HCPCS: A4314; A9270; J2470; J2543; J2704; J3480; J7120; P9016

== ENCOUNTER 2023-10-02 21:06 | Emergency (ER) | payer MEDICARE, OTHER ==
[~2023-10-02] VITALS: Ht 149.9 cm; Wt 61.8 kg
[~2023-10-02 21:06] MED LIST changes: +BUMEX2 MG PO; +CRESTOR20 MG PO; +DIFLUCAN200 MG PO; +FERROUS SU325 MG/TAB PO; +MAGIC MOUTH PO; +TYLENOL 325MG325 MG PO; +VALTREX1 GM PO; +ZOLOFT 25MG25 MG PO
[2023-10-02 21:13] VITALS: TEMP 98.1
[2023-10-02] MEDS ORDERED: NS 500 ML IV ONE (23:15)
[2023-10-02 23:36] LABS: BASO % 0.3 % (0.0-2.0); EOS # 0.5 K/mm3 (0.0-0.7); EOS % 5.2 % (0.0-4.0); GRAN # 5.9 K/mm3 (1.4-6.5); GRAN % 61.7 % (42.2-75.2); HEMOGLOBIN 10.7 g/dl (12.5-16.0); LYMPH # 1.7 K/mm3 (1.2-3.4); LYMPH % 17.8 % (20.0-51.0); MEAN CELL VOLUME 80 fl (80.0-100.0); MEAN CORPUSCULAR HEMOGLOBIN 24 pg (27-31); MEAN CORPUSCULAR HGB CONC 31 g/dl (33.0-37.0); MONO # 1.4 K/mm3 (0.1-0.6); MONO % 14.6 % (1.7-9.3); PLATELET COUNT 386 K/mm3 (130-400)
[2023-10-02 23:54] LABS: CALCIUM 9.8 mg/dL (8.4-10.2); CREATININE, serum 0.8 mg/dL (0.57-1.11); POTASSIUM 3.7 mEq/L (3.5-4.5); TOTAL PROTEIN 6.5 g/dl (6.2-8.1)
[2023-10-02 23:59] LABS: TROPONIN-I 0.036 ng/mL (0.00-0.033)
[2023-10-03] LABS: RED BLOOD COUNT 4.39 M/mm3 (4.10-5.30)
[2023-10-03 00:10] LABS: BILIRUBIN,TOTAL 0.7 mg/dL (0.2-1.2)
[2023-10-03 00:18] LABS: COLLECTION METHOD CATHETER
[2023-10-03 00:41] LABS: URINE APPEARANCE CLEAR (CLEAR/HAZY); URINE BLOOD NEGATIVE (NEGATIVE); URINE COLOR YELLOW (YELLOW); URINE GLUCOSE NEGATIVE (NEGATIVE); URINE KETONE TRACE (NEGATIVE); URINE NITRATE NEGATIVE (NEGATIVE); URINE PROTEIN(semi-quant) TRACE (NEGATIVE)
[2023-10-03 01:37] VITALS: BP 155/74; PULSE 98
== END 2023-10-03 01:37 | disposition home or self-care (01) ==
LOC: COL.ER 21:06
PROVIDERS: Emergency Medicine
DX: R19.7 Diarrhea, unspecified (principal); R11.10 Vomiting, unspecified
CPT/HCPCS: J7040